=== PATIENT | female | born 1945 | race Caucasian/White ===

== ENCOUNTER → 2019-08-18 | Outpatient (CLI) | payer MEDICARE ==
[~2019-08-18] MED LIST: ASCO500T8 PO; ASPI-496 PO; CALC-112 PO; CETI1TAB6 PO; ESTR1PAT25 TD; LEVO75TA5 PO; LOSA1TAB22 PO; MAGN250T2 PO; MELO15TA24 PO; METH2.5T PO; MULT-464 PO; OMEG500C3 PO; OMEP-110 PO; POTA99TA8 PO; VITA0.4T5 PO
== END | disposition home or self-care (01) ==
LOC: RAD 10:16
PROVIDERS: ATTEND Family Medicine
DX: S33.120A Subluxation of L2/L3 lumbar vertebra, initial encounter (principal); S33.140A Subluxation of L4/L5 lumbar vertebra, initial encounter; M41.86 Other forms of scoliosis, lumbar region; M47.817 Spondylosis without myelopathy or radiculopathy, lumbosacral region; X58.XXXA Exposure to other specified factors, initial encounter; Y93.89 Activity, other specified; Y92.89 Other specified places as the place of occurrence of the external cause; Y99.8 Other external cause status
CPT/HCPCS: 72100

== ENCOUNTER → 2020-09-23 | Outpatient (CLI) | payer MEDICARE ==
[~2020-09-23] MED LIST changes: +AMLO-150 PO; +CALC1CAP8 PO; +LOSA100T14 PO; +MAGN400T9 PO; +OMEG1CAP39 PO; +TRAM50TA2 PO; +UBID100C41 PO
[2020-09-23 15:57] LABS: BASOPHILS % (AUTO) 1 % (0-1); EOSINOPHILS % (AUTO) 3 % (1-7); LYMPHOCYTES % (AUTO) 22 % (22-44); MEAN CORPUSCULAR HGB CONC 34.1 g/dL (32.4-35.8); MEAN PLATELET VOLUME 7.4 fL (7.4-10.4); MONOCYTES % (AUTO) 11 % (2-9); NEUTROPHILS % (AUTO) 63 % (42-75); PLATELET COUNT 266 x10^3/uL (130-400); RED BLOOD COUNT 4.44 x10^6/uL (3.82-5.3); RED CELL DISTRIBUTION WIDTH 13.7 % (9.6-15.2)
[2020-09-23 16:02] LABS: ALBUMIN 3.6 g/dL (3.4-5.0); ANION GAP 3 mmol/L (5-15); CALCIUM 8.5 mg/dL (8.5-10.1); CHLORIDE 102 mmol/L (98-107)
[2020-09-23 16:06] LABS: ALANINE AMINOTRANSFERASE 29 U/L (12-78); ALKALINE PHOSPHATASE 80 U/L (45-117); BILIRUBIN,TOTAL 0.3 mg/dL (0.2-1.0); CREATININE 0.63 mg/dL (0.55-1.02); TOTAL PROTEIN 6.6 g/dL (6.4-8.2)
[2020-09-23 16:07] LABS: MD NO
== END | disposition home or self-care (01) ==
LOC: STAR 13:43
PROVIDERS: ATTEND Orthopaedic Surgery
DX: Z01.812 Encounter for preprocedural laboratory examination (principal); Z20.828 Contact with and (suspected) exposure to other viral communicable diseases; M25.559 Pain in unspecified hip
CPT/HCPCS: 80053; 85025; 87081; 87635; 93005

== ENCOUNTER 2020-09-29 05:43 | Observation (INO) | payer MEDICARE ==
[~2020-09-29] VITALS: Ht 152.4 cm; Wt 50.1 kg
[2020-09-29] MEDS ORDERED: CHLORHEXIDINE 15 ML UDC MM STA (06:04)
[2020-09-29] MEDS ORDERED: MIDAZOLAM 1 MG/ML, 2ML ONE (06:09)
[2020-09-29] MEDS ORDERED: FENTANYL PF 250 MCG/5ML ONE (06:09)
[2020-09-29] MEDS ORDERED: CHLORHEXIDINE 15 ML UDC ONE (06:12)
[2020-09-29] MEDS ORDERED: LACTATED RINGERS 1,000 ML IV SCH (06:30)
[2020-09-29] MEDS ORDERED: SODIUM CHLORIDE 0.9% 50 ML ONE (06:33)
[2020-09-29] MEDS ORDERED: TRANEXAMIC ACID 100 MG/ML, 10ML ONE ×2 (06:33→08:42)
[2020-09-29] MEDS ORDERED: VANCOMYCIN 1,000 MG ONE (06:33)
[2020-09-29] MEDS ORDERED: KETOROLAC 60 MG/2 ML ONE (06:33)
[2020-09-29] MEDS ORDERED: ROPIvacaine/PF 0.2%, 20 ML ONE (06:33)
[2020-09-29] MEDS ORDERED: EPINEPHRINE 1 MG/ML, 1ML ONE (06:34)
[2020-09-29] MEDS ORDERED: ROCURONIUM 10 MG/ML,10ML ONE (07:05)
[2020-09-29] MEDS ORDERED: ONDANSETRON 2MG/ML, 2ML ONE ×2 (07:05→09:37)
[2020-09-29] MEDS ORDERED: SUCCINYLCHOLINE 20 MG/ML, 10ML ONE (07:05)
[2020-09-29] MEDS ORDERED: PROPOFOL 10 MG/ML, 20ML ONE (07:05)
[2020-09-29] MEDS ORDERED: DEXAMETHASONE 4 MG/ML, 1ML ONE (07:05)
[2020-09-29] MEDS ORDERED: ALBUTEROL SULFATE 2.5 MG/3 ML NPPB PRN (07:30)
[2020-09-29] MEDS ORDERED: hydrALAzine 20 MG/ML, 1ML IV PRN (07:30)
[2020-09-29] MEDS ORDERED: ONDANSETRON 2MG/ML, 2ML IVPush PRN ×3 (07:30→15:00)
[2020-09-29] MEDS ORDERED: METOCLOPRAMIDE 5 MG/ML, 2ML IV PRN (07:30)
[2020-09-29] MEDS ORDERED: DIAZEPAM 5 MG/ML, 2ML IV PRN ×2 (07:30)
[2020-09-29] MEDS ORDERED: LABETALOL 5MG/ML, 20ML IV PRN (07:30)
[2020-09-29] MEDS ORDERED: PROMETHAZINE 25 MG/ML, 1ML IV PRN (07:30)
[2020-09-29] MEDS ORDERED: MEPERIDINE/PF 25MG/0.5ML IVPush PRN (07:30)
[2020-09-29] MEDS ORDERED: OXYcodone 5 MG/5 ML ORAL.SOL UDC PO PRN (07:30)
[2020-09-29] MEDS ORDERED: HYDROmorphone 1 MG/ML, 1ML INJ IV PRN (07:30)
[2020-09-29] MEDS ORDERED: KETOROLAC 30 MG/1 ML IV PRN (07:30)
[2020-09-29] MEDS: FENTANYL PF 100 MCG/2ML IV PRN ×2 (08:45→09:00)
[2020-09-29] MEDS ORDERED: FENTANYL PF 100 MCG/2ML ONE ×2 (08:49→09:23)
[2020-09-29] MEDS ORDERED: OXYcodone IR 5MG TABLET PO PRN ×3 (09:00→15:00)
[2020-09-29] MEDS ORDERED: MULTIVITAMINS/MINERALS TABLET PO SCH (09:00)
[2020-09-29] MEDS ORDERED: HYDROmorphone 1 MG/ML, 1ML INJ IVPush PRN (09:00)
[2020-09-29] MEDS ORDERED: OXYcodone 5 MG/5 ML ORAL.SOL UDC ONE (09:00)
[2020-09-29] MEDS ORDERED: DIPHENHYDRAMINE 50 MG/ML, 1ML IVPush PRN (09:00)
[2020-09-29] MEDS ORDERED: ACETAMINOPHEN 650 MG/20.3 ML UDC ONE (09:00)
[2020-09-29] MEDS ORDERED: DIPHENHYDRAMINE 50 MG CAPSULE PO PRN (09:00)
[2020-09-29] MEDS ORDERED: POLYETHYLENE GLYCOL 17 GM PACKET PO PRN (09:00)
[2020-09-29] MEDS ORDERED: SENNA/DOCUSATE TABLET PO PRN (09:00)
[2020-09-29] MEDS ORDERED: ONDANSETRON 4 MG TABLET PO PRN (09:00)
[2020-09-29] MEDS ORDERED: MAGNESIUM HYDROXIDE 8%, 30ML UDC PO PRN (09:00)
[2020-09-29] MEDS ORDERED: PROMETHAZINE 25 MG/ML, 1ML IM PRN ×2 (09:00→15:00)
[2020-09-29] MEDS ORDERED: DOCUSATE 100 MG CAPSULE PO SCH (09:00)
[2020-09-29] MEDS ORDERED: DIAZEPAM 5 MG TABLET PO PRN ×2 (09:00→15:00)
[2020-09-29] MEDS ORDERED: PROMETHAZINE 12.5 MG SUPP PR PRN (09:00)
[2020-09-29] MEDS ORDERED: BISACODYL 10 MG SUPP PR PRN (09:00)
[2020-09-29] MEDS ORDERED: PSYLLIUM PACKET PO PRN (09:00)
[2020-09-29] MEDS ORDERED: ALUMINUM/MAG/SIMETHICONE 30 ML UDC PO PRN (09:00)
[2020-09-29] MEDS ORDERED: CEFAZOLIN PMX 1GM/50ML 50 ML IVPB SCH (09:23)
[2020-09-29] MEDS ORDERED: DIAZEPAM 5 MG/ML, 2ML ONE (09:31)
[2020-09-29] MEDS ORDERED: DIPHENHYDRAMINE 25 MG CAPSULE PO PRN (15:00)
[2020-09-29] MEDS ORDERED: KETOROLAC 30 MG/1 ML IM SCH (15:00)
[2020-09-29] MEDS ORDERED: DOCUSATE 100 MG CAPSULE PO PRN (15:00)
[2020-09-29] MEDS ORDERED: ONDANSETRON ODT 4 MG PO PRN (15:00)
[2020-09-29] MEDS ORDERED: TAMSULOSIN 0.4 MG CAP.ER.24H PO ONE (15:00)
[2020-09-29] MEDS ORDERED: KETOROLAC 30 MG/1 ML IV SCH (15:00)
[2020-09-29] MEDS ORDERED: PSEUDOEPHEDRINE 30 MG TABLET PO PRN (16:30)
[2020-09-29] MEDS ORDERED: CETIRIZINE 10 MG TABLET PO PRN (16:30)
[2020-09-29] MEDS ORDERED: ESTRADIOL TP SCH (16:30)
[2020-09-29] MEDS: ASPIRIN 81 MG TABLET EC PO SCH (16:39)
[2020-09-29] MEDS: ACETAMINOPHEN 500 MG TABLET PO SCH ×2 (16:44→18:20)
[2020-09-29] MEDS: SODIUM CHLORIDE 0.9% 1,000 ML IV SCH ×2 (16:44→19:35)
[2020-09-29] MEDS: CEFAZOLIN PMX 1GM/50ML 50 ML IVPB SCH (17:11)
[2020-09-29] MEDS: D5%-0.45% NACL 1,000 ML IV SCH ×2 (17:11→21:57)
[2020-09-29 18:15] VITALS: BP 115/63
[2020-09-29] MEDS: OXYcodone IR 5MG TABLET PO PRN (18:20)
[2020-09-29] MEDS ORDERED: ASPIRIN 81 MG TABLET EC PO SCH (20:00)
[2020-09-29] MEDS: KETOROLAC 30 MG/1 ML IV SCH (20:01)
[2020-09-30] MEDS: OXYcodone IR 5MG TABLET PO PRN ×2 (00:05→08:30)
[2020-09-30 00:10] VITALS: BP 97/53
[2020-09-30] MEDS: CEFAZOLIN PMX 1GM/50ML 50 ML IVPB SCH (01:19)
[2020-09-30] MEDS: ACETAMINOPHEN 500 MG TABLET PO SCH ×2 (01:19→06:58)
[2020-09-30] MEDS: KETOROLAC 30 MG/1 ML IV SCH ×2 (02:41→08:31)
[2020-09-30 04:14] VITALS: BP 114/66
[2020-09-30] MEDS ORDERED: DEXAMETHASONE 4 MG/ML, 1ML IVPush SCH ×2 (06:00)
[2020-09-30] MEDS ORDERED: LEVOTHYROXINE 75 MCG TABLET PO SCH (06:00)
[2020-09-30] MEDS ORDERED: OMEPRAZOLE 20 MG CAPSULE.DR PO SCH (06:00)
[2020-09-30] MEDS: ASPIRIN 81 MG TABLET EC PO SCH (06:16)
[2020-09-30 07:48] VITALS: BP 126/73
[2020-09-30] MEDS ORDERED: AMLODIPINE 5 MG TABLET PO SCH (09:00)
[2020-09-30] MEDS ORDERED: LOSARTAN 100 MG TAB PO SCH (09:00)
[2020-09-30] MEDS ORDERED: MAGNESIUM OXIDE 400 MG TABLET PO SCH (09:00)
[2020-09-30 10:20] VITALS: BP 113/74
== END 2020-09-30 10:42 | disposition home or self-care (01) ==
LOC: OUT 05:43 → ORIP 09:22 → 4NE 15:27 → DCLOUNGE 09-30 10:35
PROVIDERS: ADMIT Orthopaedic Surgery; ATTEND Orthopaedic Surgery
DX: M16.12 Unilateral primary osteoarthritis, left hip (principal); G89.29 Other chronic pain; M54.9 Dorsalgia, unspecified; M06.9 Rheumatoid arthritis, unspecified; I10 Essential (primary) hypertension; K21.9 Gastro-esophageal reflux disease without esophagitis; Z96.642 Presence of left artificial hip joint; Z79.899 Other long term (current) drug therapy
CPT/HCPCS: 27130; 36415; 72170; 85014; 85018; 86850; 86900; 96365; 96366; 96375; 96376; 97162; 97165; C1713; C1776; G0378; J0171; J0330; J0690; J1100; J1885; J2250; J2405; J2704; J2795; J3010; J3360; J7120; J3370